=== PATIENT | female | born 2000 | race Caucasian/White ===

== ENCOUNTER 2022-08-06 22:29 | Emergency (ER) | payer MEDICAID ==
[~2022-08-06] VITALS: Ht 167.6 cm; Wt 54.4 kg
[2022-08-06 22:35] VITALS: BP_SYST 135
--- NOTE | 2022-08-06 22:38 | NUR ---
Patient to ER bed 8 to gown for evaluation. Side rails up. Report given to ONEIL TURNER(REG).
--- NOTE | 2022-08-06 22:40 | NUR ---
22 y/o F ambulatory from home with c/o sore throat, fever, N&V, and body aches x1 day. States she has been unable to bring her fever down at home. Unable to keep any food down. Arrived to ED in no acute distress. Breathing adequately on RA. Sig. other at bedside.
--- NOTE | 2022-08-06 22:48 | NUR ---
MD Beyer at bedside for examination.
[2022-08-06] MEDS ORDERED: NACL 0.9% 1,000 ML IV ONE (23:00)
[2022-08-06] MEDS ORDERED: KETOROLAC TROMETHAMINE 30 MG VIAL IVP ONE (23:00)
[2022-08-06] MEDS ORDERED: ONDANSETRON HCL 4 MG/2 ML VIAL IVP ONE (23:00)
[2022-08-06] MEDS ORDERED: ONDA8TAB60 PO (23:05)
[2022-08-06] MEDS ORDERED: CIPR-260 PO (23:05)
[2022-08-06] MEDS ORDERED: IBUP-1969 PO (23:05)
--- NOTE | 2022-08-06 23:08 | NUR ---
# 22 gauge angiocath placed to R hand. Use of asceptic technique. Opsite placed over site. Blood return noted. Flushed with 10 cc of normal saline. No evidence of infiltration noted. Patient tolerated well.
--- NOTE | 2022-08-06 23:09 | NUR ---
Covid/Flu nasal swab collected and sent to lab.
[2022-08-07 00:04] VITALS: BP_SYST 113
--- NOTE | 2022-08-07 00:05 | NUR ---
Patient given written and verbal discharge instructions and verbalizes understanding. ER MD Beyer discussed with patient the results and treatment provided. Patient in stable condition. ID arm band removed. IV catheter removed intact and dressing applied, no active bleeding. Rx sent to preferred pharmacy. Patient educated on pain management and to follow up with PMD. Opportunity for questions provided and answered. Medication side effect fact sheet provided.
== END 2022-08-07 00:04 | disposition home or self-care (01) ==
LOC: SED 22:29
DX: J11.1 Influenza due to unidentified influenza virus with other respiratory manifestations (principal); N39.0 Urinary tract infection, site not specified; R50.9 Fever, unspecified; R05.9 Cough, unspecified; R11.2 Nausea with vomiting, unspecified; R06.02 Shortness of breath; Z79.899 Other long term (current) drug therapy; Z20.822 Contact with and (suspected) exposure to COVID-19
CPT/HCPCS: 99284; 96374; 96361; 96375; 87426; 36415; 81002; 81025; 87804 ×2; J1885; J2405; J7030